=== PATIENT | female | born 1955 | race Caucasian/White ===

== ENCOUNTER 2023-09-05 14:53 | Emergency (ER) | payer OTHER, SELFPAY ==
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
[2023-09-05 14:59] VITALS: BP 127/84; PULSE 90; RESP 15; TEMP 36.7; O2SAT 97
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
[2023-09-05 17:30] VITALS: BP 122/68; PULSE 68; RESP 17; O2SAT 98
== END 2023-09-05 17:31 | disposition home or self-care (01) ==
PROVIDERS: Emergency Provider Preventive Medicine Aerospace Medicine
DX: S40.012A Contusion of left shoulder, initial encounter (principal); S16.1XXA Strain of muscle, fascia and tendon at neck level, initial encounter; M25.561 Pain in right knee; V89.2XXA Person injured in unspecified motor-vehicle accident, traffic, initial encounter
CPT/HCPCS: 70450; 72125; 73030; 73562; 99284